=== PATIENT | male | born 1990 | race Caucasian/White ===

== ENCOUNTER 2016-11-27 08:47 | Outpatient (CLI) | payer OTHER ==
--- NOTE | 2016-11-27 09:08 | DIAGNOSTIC IMAGING REPORT ---
PROCEDURE: XR SHOULDER 2 OR MORE VW-RIGHT INDICATION: R SHOULDER PAIN, initial encounter TECHNIQUE: Three views. COMPARISON: None. FINDINGS: Osseous structures, joint spaces and soft tissues are normal. IMPRESSION: 1. Normal right shoulder.
== END 2016-11-27 23:00 ==
LOC: XR SRH 08:47
DX: M25.511 Pain in right shoulder (principal)